=== PATIENT | female | born 1980 | race Caucasian/White ===

== ENCOUNTER 2017-03-02 02:35 | Observation (INO) | payer OTHER ==
[2017-03-02] MEDS ORDERED: ACETYLCYSTEINE 6,000 MG/30 ML VIAL PO STA (02:43)
--- NOTE | 2017-03-02 02:46 | ED ---
General Adult HPI - General Stated complaint: overdose Time Seen by Provider: 03/02/17 02:35 Source: RN notes reviewed - History of Present Illness Initial comments: This is a 36 old female that was transferred to us from [facility]. Patient showed up there intoxicated and stating that she took a bunch of Kress. The patient was unable to tell them what time she took the pills so they alice a Tylenol level and she was at 125 so because he did not know the time frame he started her on Mucomyst. The only had 4000 of Mucomyst and she needed 9600 so they gave her the 4000 and transferred the patient to us. They stated that the patient was not obtunded at the time of arrival but drunk. Patient tells us that she has no current problems but she does not remember when she took the pills but she states she believes she took less than 20 - Related Data Allergies Allergy/AdvReac Type Severity Reaction Status Date / Time aspirin AdvReac Rash/Hives Verified 03/02/17 02:48 diphenhydramine AdvReac Rash/Hives Verified 03/02/17 02:48 [From Benadryl] Penicillins AdvReac Rash/Hives Verified 03/02/17 02:48 Review of Systems ROS Statement: Those systems with pertinent positive or pertinent negative responses have been documented in the HPI. ROS Other: All systems not noted in ROS Statement are negative. General Exam - General Exam Comments Initial Comments: GENERAL: Patient is well-developed and well-nourished. Patient is nontoxic and well- hydrated and is in no acute distress. Patient is intoxicated ENT: Neck is soft and supple. No significant lymphadenopathy is noted. Oropharynx is clear. Moist mucous membranes. Neck has full range of motion without eliciting any pain. EYES: The sclera were anicteric and conjunctiva were pink and moist. Extraocular movements were intact and pupils were equal round and reactive to light. Eyelids were unremarkable. PULMONARY: Unlabored respirations. Good breath sounds bilaterally. No audible rales rhonchi or wheezing was noted. CARDIOVASCULAR: There is a regular rate and rhythm without any murmurs gallops or rubs. ABDOMEN: Soft and nontender with normal bowel sounds. No palpable organomegaly was noted. There is no palpable pulsatile mass. SKIN: Skin is clear with no lesions or rashes and otherwise unremarkable. NEUROLOGIC: Patient is alert and oriented x3. Cranial nerves II through XII are grossly intact. Motor and sensory are also intact. Normal speech, volume and content. Symmetrical smile. MUSCULOSKELETAL: Normal extremities with adequate strength and full range of motion. No lower extremity swelling or edema. No calf tenderness. LYMPHATICS: No significant lymphadenopathy is noted PSYCHIATRIC: Patient states she did take Kress and she did it because she believed that she might have cancer and she figures it would be easier just to kill herself. Course Vital Signs 03/02/17 02:37 Temperature 98.0 F Pulse Rate 102 H Respiratory 18 Rate Blood Pressure 74/62 O2 Sat by Pulse 94 L Oximetry Procedures - Restraint - Face to Face Restraint Occurrence 1 Patient's Immediate Situation: Endangers self safety, Endangers others' safety Patient's Reaction to the Intervention: Uncooperative Patient's Medical & Behavioral Condition: Agitated, Suicidal thoughts Need to Continue or Terminate Restraint or Seclusion: Continue Face to Face Eval of Restraint Date: 03/02/17 Face to Face Eval of Restraint Time: 03:05 Medical Decision Making - Lab Data Lab Results 03/02/17 Range/Units 02:53 Acetaminophen 33.0 ug/mL Disposition Clinical Impression: Acetaminophen overdose, Suicide attempt, Alcohol intoxication Disposition: ADMITTED IP TO THIS HOSP Referrals: None,Stated [Primary Care Provider] - 1-2 days Time of Disposition: 04:05
[2017-03-02] MEDS ORDERED: SODIUM CHLORIDE 0.9% 1,000 ML IV ONE (04:05)
[2017-03-02] MEDS ORDERED: ONDANSETRON 4 MG/2 ML VIAL IVP STA (05:01)
[2017-03-02 05:13] VITALS: BP 111/57; PULSE 94; RESP 18; TEMP 97.1
[2017-03-02 06:11] VITALS: BMI 25.7
[2017-03-02] MEDS ORDERED: ACETYLCYSTEINE 6,000 MG/30 ML VIAL PO SCH (08:00)
[2017-03-02 10:42] LABS: ALT 38 U/L (9-52); AST 27 U/L (14-36); Albumin 3.9 g/dL (3.5-5.0); Alkaline Phosphatase 66 U/L (38-126); Anion Gap 13 mmol/L; Blood Urea Nitrogen 5 mg/dL (7-17); Calcium 8.4 mg/dL (8.4-10.2); Carbon Dioxide 18 mmol/L (22-30); Chloride 113 mmol/L (98-107); Glucose 81 mg/dL (74-99); Potassium 3.8 mmol/L (3.5-5.1); Sodium 144 mmol/L (137-145); Total Bilirubin 0.3 mg/dL (0.2-1.3); Total Protein 7.2 g/dL (6.3-8.2)
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
--- NOTE | 2017-03-02 11:47 | P.DS ---
Providers Date of admission: 03/02/17 04:05 Attending physician: Drew Llamas Consults: 03/02/17 07:14 Consult Physician Stat Consulting Provider: Elías Morris Consult Reason/Comments: ETOH, overdose, suicidal Do you want consulting provider notified?: Yes Primary care physician: Stated None Hospital Course: Refer to my HPI Plan - Discharge Summary New Discharge Prescriptions: No Action No Known Home Medications [No Known Home Medications] Discharge Medication List No Known Home Medications [No Known Home Medications] 03/02/17 [History] Follow up Appointment(s)/Referral(s): None,Stated [Primary Care Provider] - 1-2 days Discharge Disposition: HOME SELF-CARE
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
== END 2017-03-02 14:50 | disposition home or self-care (01) ==
LOC: EC 02:35 → 5MS5E 04:05 → INTOOBSV 04:05
PROVIDERS: ADMIT Internal Medicine; ATTEND Internal Medicine
DX: R41.82 Altered mental status, unspecified (principal); E87.2 Acidosis; E87.8 Other disorders of electrolyte and fluid balance, not elsewhere classified; Z88.6 Allergy status to analgesic agent; Z88.0 Allergy status to penicillin; Z88.8 Allergy status to other drugs, medicaments and biological substances; F17.200 Nicotine dependence, unspecified, uncomplicated; E66.9 Obesity, unspecified; Z68.25 Body mass index [BMI] 25.0-25.9, adult; Z78.1 Physical restraint status; F43.24 Adjustment disorder with disturbance of conduct
CPT/HCPCS: 96361; 96374; 99285; 36415; 80053; 83520; G0378; J2405